=== PATIENT | male | born 1950 | race Caucasian/White ===

== ENCOUNTER → 2019-02-09 | Outpatient (CLI) | payer MEDICARE ==
[~2019-02-09] MED LIST: REGADENOSON 0.4 MG/5 ML SYRINGE ONE
== END | disposition home or self-care (01) ==
LOC: CVU 06:52
PROVIDERS: ATTEND Internal Medicine Cardiovascular Disease
DX: I25.10 Atherosclerotic heart disease of native coronary artery without angina pectoris (principal); I25.9 Chronic ischemic heart disease, unspecified; I10 Essential (primary) hypertension
CPT/HCPCS: 78452; 93017; 93306; A9502; J2785

== ENCOUNTER 2020-12-20 14:51 | Emergency (ER) | payer MEDICARE ==
[~2020-12-20] VITALS: Ht 175.3 cm; Wt 111.2 kg
[~2020-12-20 14:51] MED LIST changes: +ASPI-1026 PO; +CARV6.2512 PO; +CLOP75TA PO; +LOSA25TA25 PO; +LOSA50TA14 PO; +LOVA40TA2 PO; -REGADENOSON 0.4 MG/5 ML SYRINGE ONE; +TRIA1TAB3 PO
[2020-12-20 15:59] LABS: BASOPHILS % (AUTO) 0 % (0-1); EOSINOPHILS % (AUTO) 1 % (1-7); LYMPHOCYTES % (AUTO) 12 % (22-44); MEAN CORPUSCULAR HEMOGLOBIN 34.1 pg (27.5-34.5); MEAN PLATELET VOLUME 7.6 fL (7.4-10.4); MONOCYTES % (AUTO) 12 % (2-9); NEUTROPHILS % (AUTO) 75 % (42-75); PLATELET COUNT 285 x10^3/uL (130-400); RED BLOOD COUNT 4.65 x10^6/uL (4.38-5.82); RED CELL DISTRIBUTION WIDTH 13.2 % (9.4-14.8)
[2020-12-20 16:00] LABS: MD NO
[2020-12-20 16:09] LABS: ALBUMIN 3.8 g/dL (3.4-5.0); ANION GAP 5 mmol/L (5-15); CALCIUM 9.2 mg/dL (8.5-10.1); CHLORIDE 104 mmol/L (98-107); CREATININE 1.72 mg/dL (0.7-1.3)
--- NOTE | 2020-12-20 17:36 | NUR ---
RIGHT FOOT PAIN X2 DAYS, UNABLE TO STAND ON IT. CMS INTACT. DENIES TRAUMA. DR. LINK TO BEDSIDE FOR EVALUATION. PT POSTIONED TO COMFORT. ATTACHED TO MONITORS. VSS. TRAMMELL.
[2020-12-20] MEDS ORDERED: KETOROLAC 60 MG/2 ML ONE (18:38)
[2020-12-20 18:43] VITALS: BP 157/65
--- NOTE | 2020-12-20 18:44 | NUR ---
PT WHEELED TO DC DESK WITH AND DC INSTRUCTIONS
[2020-12-20] MEDS ORDERED: KETOROLAC 30 MG/1 ML IM ONE (19:00)
== END 2020-12-20 18:55 | disposition home or self-care (01) ==
LOC: ED 18:30
DX: M77.51 Other enthesopathy of right foot and ankle (principal)
CPT/HCPCS: 36415; 73630; 80048; 82040; 84550; 85025; 96372; 99284; J1885